=== PATIENT | female | born 1965 | race Caucasian/White ===

== ENCOUNTER 2017-05-18 15:59 | Emergency (ER) | payer SELFPAY ==
--- NOTE | 2017-05-18 16:07 | Emergency Department Report ---
Stated Complaint: VAG B;EEDING POST MENAPAUSEL Time Seen by Provider: 05/18/17 16:04 - HPI History of Present Illness: PT c/o vaginal bleeding since Wednesday - ROS Review of Systems: + pelvic pain lmp 5 years ago - Exam Physical Exam: PT looks well, non toxic. No acute distress noted. MSE screening note: Focused history and physical exam performed. Due to findings the following was ordered: labs, us ED Disposition for MSE Condition: Stable
[2017-05-18 16:31] LABS: Basophils % (Auto) 0.3 % (0.0-1.8); Eosinophils % (Auto) 1.4 % (0.0-4.3); Hemoglobin 14.7 gm/dl (10.1-14.3); Mean Corpuscular HGB Conc 33 % (30-34); Mean Corpuscular Hemoglobin 31 pg (28-32); Mean Corpuscular Volume 94 fl (79-97); Platelet Count 187 K/mm3 (140-440); Red Blood Count 4.67 M/mm3 (3.65-5.03); Red Cell Distribution Width 14.8 % (13.2-15.2); White Blood Count 10.1 K/mm3 (4.5-11.0)
[2017-05-18 16:51] LABS: Anion Gap 16 mmol/L; BUN/Creatinine Ratio 23.33; Blood Urea Nitrogen 14 mg/dL (7-17); Calcium 9.3 mg/dL (8.4-10.2); Carbon Dioxide 27 mmol/L (22-30); Chloride 104.1 mmol/L (98-107); Glucose 96 mg/dL (65-100); Potassium 4.4 mmol/L (3.6-5.0); Sodium 143 mmol/L (137-145)
--- NOTE | 2017-05-18 20:43 | Ultrasound Report ---
FINAL REPORT EXAM: US PELVIC COMPLETE HISTORY: bleeding, lmp 5 years ago, pain TECHNIQUE: Real-time sonography was performed of the pelvis transabdominally. Images are submitted for interpretation. PRIORS: None. FINDINGS: The uterus measures 8.2 x 4.3 x 5.4 cm. The endometrium measures 1.1 cm in thickness. There is fluid in the upper endometrial canal. The right ovary appears normal measuring 2.2 x 1.7 x 2.7 cm. There is a simple cyst in the left ovary measuring 4.5 cm. The left ovary measures 5.2 x 4.3 x 5.2 cm. Color duplex evaluation of the ovaries shows flow bilaterally. There is no free pelvic fluid. IMPRESSION: 1. Fluid in the upper endometrial canal may be trapped fluid by an endometrial polyp. Consider further evaluation with MRI or sonohysterography. 2. 4.5 cm simple cyst in the left ovary.
--- NOTE | 2017-05-18 20:46 | Ultrasound Report ---
FINAL REPORT EXAM: US TRANSVAGINAL HISTORY: bleeding, lmp 5 years ago, pain TECHNIQUE: Real-time sonography was performed of the pelvis endovaginally. Images are submitted for interpretation. PRIORS: None. FINDINGS: The uterus measures 8.2 x 4.3 x 5.4 cm. The endometrium measures 1.1 cm in thickness. There is fluid in the upper endometrial canal. The right ovary appears normal measuring 2.2 x 1.7 x 2.7 cm. There is a simple cyst in the left ovary measuring 4.5 cm. The left ovary measures 5.2 x 4.3 x 5.2 cm. Color duplex evaluation of the ovaries shows flow bilaterally. There is no free pelvic fluid. IMPRESSION: 1. Fluid in the upper endometrial canal may be trapped fluid by an endometrial polyp. Consider further evaluation with MRI or sonohysterography. 2. 4.5 cm simple cyst in the left ovary.
[2017-05-19] MEDS ORDERED: NORCO 5/325 PO ONE (01:43)
[2017-05-19] MEDS ORDERED: MOTRIN PO ONE (01:43)
--- NOTE | 2017-05-19 01:48 | Emergency Department Report ---
HPI - General Chief Complaint: Vaginal Bleeding Time Seen by Provider: 05/18/17 16:04 - HPI HPI: Room 26 The patient is a 51-year-old female presenting with chief complaint of vaginal bleeding. Patient is postmenopausal as she entered menopause at age 45. The patient states for the past 5 days she is having vaginal bleeding and suprapubic cramps consistent with menstrual cramps. Patient states she's been going through approximately 4 pads per day. The patient currently gives her pain a score of 6-8/10. Patient denies any history of fever or unexplained weight loss. Location: Pelvis Duration: 5 days Quality: Cramping Severity: 6-8/10 Modifying factors: [see above] Context: [see above] Mode of transportation: [not driving] ED Past Medical Hx - Past Medical History Previous Medical History?: No - Surgical History Past Surgical History?: No - Family History Family history: no significant - Social History Smoking Status: Current Every Day Smoker (1/2 pack per day) Substance Use Type: None (denies illicit drug use), Alcohol (occasional), Non Opiate Pain - Medications Home Medications: Home Medications Medication Instructions Recorded Confirmed Last Taken Type Ibuprofen [Motrin 800 MG tab] 800 mg PO Q8HR PRN #20 tablet 05/19/17 Unknown Rx medroxyPROGESTERone ACETATE 10 mg PO QDAY #10 tablet 05/19/17 Unknown Rx [Provera] traMADol [Ultram] 50 mg PO Q6HR PRN #14 tablet 05/19/17 Unknown Rx ED Review of Systems ROS: Stated complaint: VAG B;EEDING POST MENAPAUSEL Other details as noted in HPI Comment: All other systems reviewed and negative Constitutional: denies: chills, fever Eyes: denies: eye pain, eye discharge, vision change ENT: denies: ear pain, throat pain Respiratory: denies: cough, shortness of breath, wheezing Cardiovascular: denies: chest pain, palpitations Endocrine: no symptoms reported Gastrointestinal: abdominal pain Genitourinary: abnormal menses Musculoskeletal: denies: back pain, joint swelling, arthralgia Skin: denies: rash, lesions Neurological: denies: headache, weakness, paresthesias Psychiatric: as per HPI Hematological/Lymphatic: denies: easy bleeding, easy bruising Physical Exam - Physical Exam Vital Signs: Vital Signs 05/18/17 05/18/17 16:02 21:53 Temperature 98.2 F 97.8 F Pulse Rate 95 H 80 Respiratory 18 18 Rate Blood Pressure 128/85 130/87 O2 Sat by Pulse 99 100 Oximetry Physical Exam: GENERAL: The patient is well-developed well-nourished female lying on stretcher not appearing to be in acute distress. [] HEENT: Normocephalic. Atraumatic. Extraocular motions are intact. Patient has moist mucous membranes. NECK: Supple. Trachea midline CHEST/LUNGS: Clear to auscultation. There is no respiratory distress noted. HEART/CARDIOVASCULAR: Regular. There is no tachycardia. There is no gallop rub or murmur. ABDOMEN: Abdomen is soft, with mild discomfort to the lower abdomen. No rebound or guarding. Patient has normal bowel sounds. There is no abdominal distention. SKIN: There is no rash. There is no edema. There is no diaphoresis. NEURO: The patient is awake, alert, and oriented. The patient is cooperative. The patient has normal speech MUSCULOSKELETAL: There is no evidence of acute injury. PELVIC: Small amount of blood in the vaginal vault ED Course Vital Signs 05/18/17 05/18/17 16:02 21:53 Temperature 98.2 F 97.8 F Pulse Rate 95 H 80 Respiratory 18 18 Rate Blood Pressure 128/85 130/87 O2 Sat by Pulse 99 100 Oximetry - Consultations Consultation #1: 05/19/17 02:13 [employer] paged 05/19/17 02:[address] Hicks. States patient should call office today to schedule an appointment to be seen. Alok to provide prescription for Provera 10 mg daily ED Medical Decision Making - Lab Data Result diagrams: 05/18/17 16:16 05/18/17 16:16 Laboratory Tests 05/18/17 05/18/17 05/18/17 16:16 16:16 16:16 WBC 10.1 RBC 4.67 Hgb 14.7 H Hct 44.0 H MCV 94 MCH 31 MCHC 33 RDW 14.8 Plt Count 187 Lymph % (Auto) 28.3 [place] % (Auto) 9.4 H Eos % (Auto) 1.4 Baso % (Auto) 0.3 Lymph # 2.9 [place] # 0.9 H Eos # 0.1 Baso # 0.0 Seg Neutrophils % 60.6 Seg Neutrophils # 6.1 Sodium 143 Potassium 4.4 Chloride 104.1 Carbon Dioxide 27 Anion Gap 16 BUN 14 Creatinine 0.6 L Estimated GFR > 60 BUN/Creatinine Ratio 23.33 Glucose 96 Calcium 9.3 HCG, Qual Negative - Radiology Data Radiology results: report reviewed (pelvic ultrasound), image reviewed (pelvic ultrasound) Pelvic ultrasound (read by radiologist)-fluid in the upper endometrial canal may be trapped fluid by endometrial polyp. Consider further evaluation with MRI or sonohysterography. 4.5 cm simple cyst in the left ovary. - Differential Diagnosis endometrial cancer, post menopause and bleeding, cervical CVA Critical care attestation.: If time is entered above; I have spent that time in minutes in the direct care of this critically ill patient, excluding procedure time. ED Disposition Clinical Impression: Postmenopausal vaginal bleeding, Left ovarian cyst Disposition: TO HOME OR SELFCARE Is pt being admited?: No Does the pt Need Aspirin: No Condition: Stable Additional Instructions: Return to the emergency department immediately should you develop worsening symptoms, fever, inability to tolerate food or liquid or any other concerns. Prescriptions: Ibuprofen [Motrin 800 MG tab] 800 mg PO Q8HR PRN #20 tablet PRN Reason: Pain medroxyPROGESTERone ACETATE [Provera] 10 mg PO QDAY #10 tablet traMADol [Ultram] 50 mg PO Q6HR PRN #14 tablet PRN Reason: Pain Referrals: PRIMARY CARE, [Primary Care Provider] - 3-5 Days Time of Disposition: 02:24
[2017-05-19 02:54] VITALS: BP 118/81
== END 2017-05-19 02:55 | disposition home or self-care (01) ==
LOC: ED 15:59
DX: N95.0 Postmenopausal bleeding (principal); N83.202 Unspecified ovarian cyst, left side; F17.200 Nicotine dependence, unspecified, uncomplicated
CPT/HCPCS: 36415; 76830; 76856; 80048; 84703; 85025